=== PATIENT | male | born 1995 | race Caucasian/White ===

== ENCOUNTER 2018-02-07 15:06 | Emergency (ER) | payer MEDICAID | END 2018-02-07 18:07 | disposition home or self-care (01) | LOC: FTE 15:06 | DX: R06.02 Shortness of breath (principal); R00.2 Palpitations | CPT/HCPCS: 71045; 93005; 99284-25 ==

== ENCOUNTER 2018-02-18 14:49 | Emergency (ER) | payer MEDICAID ==
[2018-02-18] MEDS ORDERED: IBUPROFEN 600 MG TAB PO (15:30)
== END 2018-02-18 15:19 | disposition home or self-care (01) ==
LOC: E/R 14:49
DX: R51 Headache (principal)
CPT/HCPCS: 99283; Z7502